=== PATIENT | female | born 1965 | race Caucasian/White ===

== ENCOUNTER 2019-05-20 12:41 | Emergency (ER) | payer MEDICARE, MEDICAID ==
[~2019-05-20] VITALS: Ht 167.6 cm; Wt 99.8 kg
[~2019-05-20 12:41] MED LIST: BUSPAR30 MG PO; CIPROFLOXACIN500 M1 PO; CLONAZEPAM 0.50.5 M1 PO; CYMBALTA PO; DOXYCYCLINE 10100 MG PO; FLAGYL500 MG PO; LEXAPRO PO; LEXAPRO20 MG PO; LITHIUM CARBON300 M7 PO; MELOXICAM7.5 MG PO; NEURONTIN 300300 M1 PO; NORCO 5-325 TA1 EACH PO; PEPCID40 MG PO; PERCOCET 5-3251 EACH PO; PREDNISONE 20 M20 M1 PO; TESSALON PERLE100 MG PO; TRILIPIX45 MG PO; ULTRAM 50MG TAB50 MG PO; VENTOLIN HFA 1818 GM INH; ZANAFLEX4 M1 PO; ZOLOFT; ZPAK PO
[2019-05-20] MEDS ORDERED: QUETIAPINE FUM100 MG PO (12:54)
[2019-05-20] MEDS ORDERED: BACTRIM DS TAB1 EACH PO (14:38)
[2019-05-20] MEDS ORDERED: IBUPROFEN 800800 M1 PO (14:38)
[2019-05-20] MEDS ORDERED: TRAMADOL 50 MG50 MG PO (14:38)
[2019-05-20 15:27] VITALS: BP 141/74
== END 2019-05-20 15:29 | disposition home or self-care (01) ==
LOC: M.ERS 12:41
DX: S92.351A Displaced fracture of fifth metatarsal bone, right foot, initial encounter for closed fracture (principal); S80.02XA Contusion of left knee, initial encounter; E11.9 Type 2 diabetes mellitus without complications; E78.5 Hyperlipidemia, unspecified; F32.9 Major depressive disorder, single episode, unspecified; Z90.49 Acquired absence of other specified parts of digestive tract; Z90.710 Acquired absence of both cervix and uterus; Z88.0 Allergy status to penicillin; W10.9XXA Fall (on) (from) unspecified stairs and steps, initial encounter; Y93.89 Activity, other specified; Y92.89 Other specified places as the place of occurrence of the external cause; Y99.8 Other external cause status